=== PATIENT | female | born 1985 | race African-American/Black ===

== ENCOUNTER 2016-08-26 18:54 | Inpatient (IN) | payer BC ==
[~2016-08-26] VITALS: Ht 167.6 cm; Wt 93.6 kg
[2016-08-26] VITALS (8 sets, daily range): BP systolic 124–139; BP diastolic 58–78; PULSE 88–120; TEMP 98.1–98.3
[2016-08-26 20:36] LABS: BASO # 0.1 (0.0-0.2); BASO % 0.6 % (0.0-2.0); EOS # 0.2 (0.0-0.7); EOS % 1.6 % (0-4.0); GRAN # 6.8 (1.4-6.5); HEMATOCRIT 39.2 % (37.0-47.0); HEMOGLOBIN 13.2 g/dl (12.5-16.0); LYMPH # 1.9 (1.2-3.4); LYMPH % 19.1 % (20.0-51.0); MEAN CELL VOLUME 79 fl (80.0-100.0); MEAN CORPUSCULAR HEMOGLOBIN 27 pg (27.0-31.0); MEAN CORPUSCULAR HGB CONC 34 g/dl (33.0-37.0); MEAN PLATELET VOLUME 11.3 fl (7.4-10.4); MONO # 0.9 (0.1-0.6); MONO % 9.4 % (1.7-9.3); PLATELET COUNT 293 K/mm3 (130-400); RED BLOOD COUNT 4.96 M/mm3 (4.10-5.30); REDCELL DISTRIBUTION WIDTH-CV 15.9 % (11.5-14.5); WHITE BLOOD COUNT 10.1 K/mm3 (4.8-10.8)
[2016-08-26] MEDS ORDERED: PRENATAL1 TA7 PO (20:49)
[2016-08-27] VITALS (20 sets, daily range): BP systolic 100–158; BP diastolic 48–84; PULSE 61–109; TEMP 97.7–98.9
[2016-08-28 02:45] VITALS: BP 123/66; PULSE 88; TEMP 98.2
[2016-08-28 07:00] LABS: HEMATOCRIT 35.8 % (37.0-47.0); HEMOGLOBIN 11.6 g/dl (12.5-16.0)
[2016-08-28 07:50] VITALS: BP 130/68; PULSE 81; TEMP 98
[2016-08-28] MEDS ORDERED: IBU600 MG PO (08:18)
[2016-08-28] MEDS ORDERED: PERCOCET 325 MG1 TA2 PO (08:18)
== END 2016-08-28 15:40 | disposition home or self-care (01) | DRG 775 ==
LOC: LDRO 18:54 → LDR 19:50 → OB 19:50
PROVIDERS: Obstetrics & Gynecology
PROC: 10D07Z6 Extraction of Products of Conception, Vacuum, Via Natural or Artificial Opening (ICD-10-PCS; principal; 2016-08-27)
PROC: 0KQM0ZZ Repair Perineum Muscle, Open Approach (ICD-10-PCS; 2016-08-27)
DX: O76 Abnormality in fetal heart rate and rhythm complicating labor and delivery (principal); O70.1 Second degree perineal laceration during delivery; Z3A.39 39 weeks gestation of pregnancy; Z37.0 Single live birth
CPT/HCPCS: J2590; J7120

== ENCOUNTER → 2016-09-17 | Outpatient (CLI) | payer BC ==
[~2016-09-17] MED LIST: IBU600 MG PO; PERCOCET 325 MG1 TA2 PO; PRENATAL1 TA7 PO
== END ==
LOC: LAC 13:16
DX: Z39.1 Encounter for care and examination of lactating mother (principal); Z71.89 Other specified counseling